=== PATIENT | male | born 1990 | race Caucasian/White ===

== ENCOUNTER 2022-06-18 17:54 | Emergency (ER) | payer OTHER, SELFPAY ==
[2022-06-18 18:04] VITALS: BP 145/90; PULSE 62; RESP 16; TEMP 36.7; O2SAT 100
--- NOTE | 2022-06-18 18:33 | ED.SKABFB ---
HPI - Skin/Abscess/Foreign Bdy General Chief complaint: Eye Problems Stated complaint: Bilateral Eye and Mouth Irritation Time Seen by Provider: 06/18/22 18:09 Source: patient Mode of arrival: ambulatory Limitations: no limitations History of Present Illness HPI narrative: Patient presents today complaining of irritation to bilateral eyes and around the mouth. States he was at home when a can of [employer]el 911 fell splattered onto his face, with a small amount splashing in his mouth. This happened at 4:30 p.m. at home. He was outside at the time, ran inside and immediately showered, rinsing his face and eyes, and changed his clothes. He complains of lightheadedness, diarrhea, irritation to the eyes and mouth area. Denies vision changes or photophobia. Visual acuity upon arrival was- right eye: 20/20, left eye: 20/25 Related Data Home Medications Medication Instructions Recorded Confirmed No Home Medications 06/18/22 06/18/22 Allergies Allergy/AdvReac Type Severity Reaction Status Date / Time No Known Allergies Allergy Verified 06/18/22 18:01 Review of Systems Review of Systems: CONSTITUTIONAL: Denies body aches, fever, chills, or sweats. EYES: Denies visual changes, redness, or discharge.+ bilateral eye irritation ENT: Denies rhinorrhea, congestion, sore throat, or otalgia. CARDIOVASCULAR: Denies chest pain, palpitations, or edema. RESPIRATORY: Denies cough or dyspnea. GASTROINTESTINAL: Denies abdominal pain, nausea, vomiting. + diarrhea GENITOURINARY: Denies dysuria or hematuria. SKIN: Denies rash, itching, or wounds.+ skin irritation around the mouth MUSCULOSKELETAL: Denies back pain, joint pain, or myalgia. NEUROLOGIC: Denies headache, numbness, tingling, or weakness.+ lightheadedness PSYCH: Denies depression or anxiety. PMFSH Comments At time of signature, I have reviewed and agree with nursing past medical, surgical, social and family history unless otherwise noted. Please see nursing chart for further information. There is no relevant family history pertinent to the presenting complaint Exam Narrative: GENERAL: Well-appearing, well-nourished, and in no acute distress. HEAD: Normocephalic, atraumatic. EYES: EOMI. PERRL. Bilateral lids and lashes normal. Bilateral mild conjunctival irritation. No drainage. No bilateral fluorescein uptake. ENT: Mucous membranes pink and moist. Nares clear. No rhinorrhea. Throat normal. Uvula midline. Mild white skin flaking above the upper lip bilaterally. No blistering or open wounds. NECK: Normal AROM. CHEST: No respiratory distress. Clear to auscultation. HEART: Regular rate and rhythm. No murmur appreciated. Normal peripheral pulses. EXTREMITIES: Normal range of motion. No edema. SKIN: Warm, dry, no rash. Capillary refill normal. Normal skin turgor. NEURO: No focal deficits. Alert and oriented x3. Gait steady. PSYCH: Normal affect. No signs of depression or anxiety. Course Course Level of Care: Express Care Visit Vital Signs Vital signs: Vital Signs Temperature 98.0 F 06/18/22 18:04 Pulse Rate 62 06/18/22 18:04 Respiratory Rate 16 06/18/22 18:04 Blood Pressure 145/90 H 06/18/22 18:04 Pulse Oximetry 100 06/18/22 18:04 Oxygen Delivery Room Air 06/18/22 18:04 Temperature 98.0 F 06/18/22 18:04 Pulse Rate 62 06/18/22 18:04 Respiratory Rate 16 06/18/22 18:04 Blood Pressure 145/90 H 06/18/22 18:04 Pulse Oximetry 100 06/18/22 18:04 Oxygen Delivery Room Air 06/18/22 18:04 Reviewed. Pt has been instructed to follow up with his PCP regarding his elevated blood pressure today. MDM - Skin/Abscess/Foreign Bdy MDM Narrative Medical decision making narrative: 1809-Poison control was called and spoke with Kelly ARMENTA. States patient can have some skin irritation with stripping of natural oils of the skin. Main toxicity comes from ingestion of large amount with aspiration. She will fax over treatment guidelines. 1
== END 2022-06-18 18:41 | disposition home or self-care (01) ==
PROVIDERS: Emergency Provider Nurse Practitioner; PCP Internal Medicine
DX: H57.13 Ocular pain, bilateral (principal); Z77.098 Contact with and (suspected) exposure to other hazardous, chiefly nonmedicinal, chemicals
CPT/HCPCS: 99202; G0463